=== PATIENT | female | born 1965 | race Caucasian/White ===

== ENCOUNTER → 2016-06-05 | Outpatient (CLI) | payer BC ==
--- NOTE | 2016-06-05 09:25 | KCIC ---
Examination: Coronary calcium score CT chest without contrast. HISTORY History of hypercholesterolemia, impaired fasting blood sugar, family history of heart disease Exposure: One or more of the following dose reduction technique were utilized for this examination: 1. Automated exposure control. 2.Adjustment of MA and /or KV according to patient size. 3. Use of iterative reconstruction technique. TECHNIQUE With retrospective electrocardiogram gaiting, axial reconstructed noncontrast images of the chest at the level of the heart were performed. Images were post processed on an independent workstation and calcium score was calculated. FINDINGS Total coronary calcium score is 0. This places the patient in the lowest percentile rank. This means that nearly all women of this age have a higher calcium score. There is no calcified plaque burden and very low cardiovascular risk. This is based on the calcium score of 0 of the left main coronary artery, 0 of the left anterior descending artery, score of 0 involving the left circumflex artery and score of 0 of the right coronary artery. Non coronary findings show no acute abnormality. IMPRESSION Total coronary calcium score is 0. This places the patient in the lowest percentile rank. This means that nearly all women of this age have a higher calcium score. There is no calcified plaque burden and very low cardiovascular risk. Electronically signed by: Isaiah Gomez (Jun 05, 2016 09:24:41)
== END | disposition home or self-care (01) ==
LOC: KCIC CT 08:19
PROVIDERS: ATTEND Nurse Practitioner Family
DX: E78.00 Pure hypercholesterolemia, unspecified (principal); R73.01 Impaired fasting glucose
CPT/HCPCS: 75571

== ENCOUNTER → 2021-02-04 | Outpatient (CLI) | payer BC ==
--- NOTE | 2021-02-04 11:52 | KCIC ---
EXAM: Cervical spine, 3 views. HISTORY: Chronic pain. COMPARISON: None. FINDINGS: 3 views of the cervical spine are obtained. There is slight reversal cervical lordosis cent ered at C5. There is degenerative endplate remodeling, spurring and Schmorl's node formation at C5-C6 . The remainder the disc spaces are preserved. IMPRESSION: Degenerative change at C5-C6. No acute osseous finding. Electronically signed by: Marcia Molina MD (02/04/2021 11:50 AM) [id number]
== END ==
LOC: KCIC 11:22
PROVIDERS: ATTEND Nurse Practitioner Family
DX: M47.812 Spondylosis without myelopathy or radiculopathy, cervical region (principal)
CPT/HCPCS: 72040